=== PATIENT | male | born 1965 | race African-American/Black ===

== ENCOUNTER 2017-06-01 21:18 | Inpatient (IN) ==
[2017-06-01] MEDS ORDERED: NS 1,000 ML ONE (22:20)
[2017-06-01] MEDS ORDERED: NS 1,000 ML IV ONE (22:28)
[2017-06-01 22:32] LABS: MANUAL DIFF NEEDED? NO
[2017-06-01 22:34] LABS: BASO% 0.4 % (0.0-0.8); HEMATOCRIT 29.2 % (42.0-52.0); HEMOGLOBIN 9.8 g/dL (14.0-18.0); IMM GRAN# 0.05 X1000 (0.0-0.04); IMM GRAN% 0.5 % (0.0-0.5); LYMPH# 3.27 X1000 (1.2-3.4); LYMPH% 31.3 % (20.5-51.1); MCH 28.8 PG (27-31); MCHC 33.6 g/dL (33-37); MCV 85.9 FL (81-99); MONO# 0.79 X1000 (0.11-0.59); MONO% 7.6 % (1.7-9.3); MPV 9.6 FL (7.4-10.4); NEUT% 59.2 % (42.2-75.2); PLT 298 X1000 (130-400)
[2017-06-01 22:45] LABS: AGAP 16; ALBUMIN 3.8 g/dL (3.5-5.0); ALKALINE PHOSPHATASE 41 U/L (32-122); AMYLASE 58 U/L (20-200); BUN 18 mg/dL (8-22); CALCIUM 8.1 mg/dL (8.8-10.2); CHLORIDE 100 mmol/L (98-107); COSMO 286; GOT 18 U/L (10-34); GPT 15 U/L (10-44); LIPASE 39 U/L (13-60); POTASSIUM 3.2 mmol/L (3.5-5.1); SODIUM 138 mmol/L (136-145); TCO2 22 mmol/L (25-35); TOTAL BILIRUBIN 0.34 mg/dL (0.20-1.00); TOTAL PROTEIN 5.9 g/dL (6.3-8.3)
[2017-06-01 23:01] LABS: INR 0.98; PROTIME 10.3 Seconds (9.2-11.7)
--- NOTE | 2017-06-01 23:32 | PROVIDER DOCUMENTATION ---
This chart was entered by Tejal Oropeza Scribe, acting as scribe for Rom Zapata MD. HPI-Abdominal Pain/GI Problem - General Chief Complaint: GI Bleed Stated Complaint: DIZZY/STOMACH ISSUES Time Seen by Provider: 06/01/17 22:32 Source: patient Allergies/Adverse Reactions: Patient Allergies Allergy/AdvReac Type Severity Reaction Status Date / Time hydrocodone Allergy NAUSEA Verified 06/01/17 22:42 Home Medications: Home Medication List Medication Instructions Recorded Confirmed Last Taken Type Amlodipine Besylate 10 mg PO DAILY 11/10/12 06/01/17 06/01/17 08:00 History Aspirin 81 mg PO DAILY 11/10/12 06/01/17 06/01/17 08:00 History Glyburide/Metformin HCl 500 mg PO BID 11/10/12 06/01/17 06/01/17 08:00 History [Glyburide-Metformin 2.5-500 mg] Simvastatin 20 mg PO DAILY 11/10/12 06/01/17 06/01/17 08:00 History Dutasteride/Tamsulosin HCl [Radha 0.4 each PO DAILY 06/20/14 06/01/17 06/01/17 08:00 History 0.5-0.4 mg Capsule] Sildenafil Citrate [Viagra] 100 mg PO PRN PRN 06/20/14 06/01/17 09/20/14 History Tadalafil [Cialis] 5 mg PO DAILY 06/01/17 06/01/17 06/01/17 08:00 History - History of Present Illness-ABD Nature of Presenting Problems: 52 Y/O M presents to ED with GI Bleed.Pt states yesterday he began having black tarry stool. Pt states that he hasn't been Vomiting blood.Hx of bladder cancer in remission. Pt states that he he does have HTN and diabetes. States he drank a couple glasses of anna's today. Severity in ED: reports: moderate Onset/Duration: reports: 24 hours ago Timing: reports: still present Activities at Onset: reports: none Associated Symptoms: reports: diarrhea, genitourinary problems. denies: back/ neck pain, chest pain, constipation, EENT symptoms, fatigue Dark Stools Present?: reports: black, tarry Rectal Bleeding: reports: bloody diarrhea Review of Systems - Adult - REVIEW OF SYSTEMS - ADULT Constitutional: denies: chills, fever Eyes: reports: no symptoms reported Ears, Nose, Mouth & Throat: reports: no symptoms reported Cardiovascular: denies: chest pain Respiratory: denies: cough, shortness of breath Gastrointestinal: reports: diarrhea, rectal bleeding. denies: nausea Genitourinary: reports: no symptoms reported Musculoskeletal: reports: no symptoms reported Integumentary: reports: no symptoms reported Neurological: reports: no symptoms reported Psychiatric: reports: no symptoms reported Endocrine: reports: no symptoms reported Hematologic/Lymphatic: reports: no symptoms reported Allergic/Immunologic: reports: no symptoms reported All Other Systems: Reviewed and Negative Past History - Adult - PAST MEDICAL HISTORY-ADULT Review of Records: reports: Old Records Reviewed, Nursing Assessment Review, Medications Reviewed, Social history reviewed & non-contributory. Physical Exam-General - CONSTITUTIONAL General Appearance: alert, no apparent distress, lethargic - EYES Eyes: PERRL/EOMI, pink conjunctivae - HEAD, EARS, NOSE, MOUTH & THROAT HENMT: moist mucous membranes, normal ENT inspection, TMs normal - NECK Neck: full range of motion, supple, normal inspection - RESPIRATORY Respiratory: lungs clear, normal breath sounds - CARDIOVASCULAR Cardiovascular: regular rate, rhythm - GASTROINTESTINAL (ABDOMEN) Abdominal Exam: non tender, soft - LYMPHATIC Lymphatic: no adenopathy - MUSCULOSKELETAL Back Exam: normal inspection Extremity: normal range of motion - SKIN Integumentary: normal color, normal turgor - NEUROLOGIC Neurologic: grossly normal - PSYCHIATRIC Psych/Mental Status: oriented x 3, depressed affect Progress - PLAN OF CARE/RESULTS Progress/Plan/Lab Results: Vital Signs - 8 hr 06/01/17 21:32 Temperature 98.3 F Pulse Rate 97 H Respiratory Rate 15 Blood Pressure 97/53 O2 Sat by Pulse Oximetry 100 Orders Category Date Time Status Saline Loc DIRECTED Care 06/01/17 21:34 Active NPO Diet 06/01/17 21:34 Active AMYLASE [CHEM] Stat Lab 06/01/17 21:55 Received CBC WITH ELECTRONIC DIFF [HEME] Stat Lab 06/01/17 21:55 Results COMPREHENSIVE METABOLIC PANEL [CHEM] Stat Lab 06/01/17 21:55 Received LIPASE [CHEM] Stat Lab 06/01/17 21:55 Received TYPE & SCREEN [BBK] Stat Lab 06/01/17 21:55 Received URINALYSIS W/POSS RFLX CULT-1 [URINALYSIS] Stat Lab 06/01/17 21:34 Uncollected 0.9% Sodium Chloride Inj [Ns] 1,000 ml Med 06/01/17 22:20 Discontinued .ROUTE As Directed 0.9% Sodium Chloride Inj [Ns] 1,000 ml Med 06/01/17 22:28 Active IV 999 mls/hr Result Diagrams: 06/01/17 21:55 06/01/17 21:55 Departure - Departure Date of Disposition Decision: 06/01/17 Time of Disposition Decision: 23:28 DIAGNOSIS: Diabetes Gastrointestinal bleeding Qualifiers: GI bleed type/associated pathology: unspecified gastrointestinal hemorrhage type Qualified Code(s): K92.2 - Gastrointestinal hemorrhage, unspecified Disposition: ADMITTED INPATIENT 09 Certified Medical Emergency: Emergent Condition: Fair Referrals and Follow-Ups: Jaron Michaels [Primary Care Provider] - - Critical Care Note This patient required my direct & personal management of CC.: No This chart was documented by the indicated scribe, (Tejal Oropeza Scribe) and accurately reflects the services I performed and decisions made by me, Rom Zapata MD, as attested by the provider's signature.
[2017-06-02] MEDS ORDERED: POTASSIUM CHLORIDE 20 MEQ/SWI 20 MEQ/100 ML IVPB IV SCH (01:00)
[2017-06-02 01:37] LABS: BILIRUBIN URINE NEGATIVE (NEGATIVE); BLOOD URINE NEGATIVE (NEGATIVE); COLOR YELLOW; GLUCOSE URINE 200 mg/dL (NEGATIVE); LEUKOCYTES URINE NEGATIVE (NEGATIVE); NITRITE URINE NEGATIVE (NEGATIVE); PH URINE 5.5; PROTEIN URINE 30 mg/dL (NEGATIVE); SP GRAVITY URINE 1.021; TURBIDITY URINE CLEAR (CLEAR); UROBILINOGEN URINE NORMAL (NORMAL)
[2017-06-02 01:38] LABS: URINE MICRO REVIEW NEEDED? YES
[2017-06-02] MEDS ORDERED: NS 1,000 ML ONE (01:42)
[2017-06-02] MEDS ORDERED: NS 1,000 ML IV ONE (02:08)
[2017-06-02 02:11] LABS: UR EPITHELIAL CELLS <10 /HPF (<10); URINE BACTERIA NEGATIVE /HPF; URINE CULTURE NEEDED? NO; URINE RBC <10 /HPF (<10); URINE WBC <10 /HPF (<10)
[2017-06-02 02:12] LABS: URINE CASTS NONE SEEN; URINE CRYSTALS NONE SEEN; URINE SMALL ROUND CELLS NONE SEEN; URINE SOURCE CLEAN CATCH
[2017-06-02] MEDS ORDERED: NS 1,000 ML IV SCH (03:09)
[2017-06-02 03:40] LABS: HEMATOCRIT 26.5 % (42.0-52.0); HEMOGLOBIN 8.7 g/dL (14.0-18.0)
[2017-06-02 03:52] LABS: RETIC% 1.76 % (0.8-2.1); RETIC-HE 33.3 PG (28.2-36.6)
[2017-06-02 03:53] LABS: MAGNESIUM 1.8 mg/dL (1.5-2.7)
[2017-06-02] MEDS ORDERED: POTASSIUM CHLORIDE 20 MEQ/SWI 20 MEQ/100 ML IVPB IV ONE (04:20)
[2017-06-02] MEDS: PROTONIX IV SCH ×2 (05:00→18:54)
[2017-06-02] MEDS: HUMALOG SUBQ SCH ×4 (05:38→20:08)
[2017-06-02] MEDS: M.V.I.-12 10 ML, FOLIC ACID 1 MG, MAGNESIUM SULFATE 1 GM, THIAMINE 100 MG in NS 1,000 ML IV SCH (09:11)
[2017-06-02] MEDS: FLOMAX PO SCH (09:20)
[2017-06-02] MEDS: NORVASC PO SCH (09:20)
[2017-06-02] MEDS: ZOCOR PO SCH (09:20)
[2017-06-02] MEDS: AVODART PO SCH (09:20)
[2017-06-02 10:11] LABS: MANUAL DIFF NEEDED? NO
[2017-06-02 10:22] LABS: BASO% 0.1 % (0.0-0.8); EOS# 0.03 X1000 (0.0-0.7); EOS% 0.4 % (0.0-10.0); HEMATOCRIT 23.7 % (42.0-52.0); HEMOGLOBIN 7.7 g/dL (14.0-18.0); IMM GRAN# 0.02 X1000 (0.0-0.04); IMM GRAN% 0.3 % (0.0-0.5); LYMPH# 1.65 X1000 (1.2-3.4); LYMPH% 24.6 % (20.5-51.1); MCH 28.4 PG (27-31); MCHC 32.5 g/dL (33-37); MCV 87.5 FL (81-99); MONO# 0.51 X1000 (0.11-0.59); MONO% 7.6 % (1.7-9.3); MPV 9.8 FL (7.4-10.4); PLT 200 X1000 (130-400); RBC 2.71 XMIL (4.7-6.1)
[2017-06-02] MEDS: CARAFATE LIQUID PO SCH ×3 (11:38→23:26)
[2017-06-02] MEDS: ATIVAN IV PRN (11:38)
[2017-06-02 12:31] LABS: MANUAL DIFF NEEDED? NO
[2017-06-02 12:41] LABS: BASO% 0.2 % (0.0-0.8); EOS# 0.03 X1000 (0.0-0.7); EOS% 0.5 % (0.0-10.0); HEMATOCRIT 23.9 % (42.0-52.0); HEMOGLOBIN 7.7 g/dL (14.0-18.0); IMM GRAN# 0.02 X1000 (0.0-0.04); IMM GRAN% 0.3 % (0.0-0.5); LYMPH# 1.49 X1000 (1.2-3.4); LYMPH% 23.8 % (20.5-51.1); MCH 28.2 PG (27-31); MCHC 32.2 g/dL (33-37); MCV 87.5 FL (81-99); MONO# 0.37 X1000 (0.11-0.59); MONO% 5.9 % (1.7-9.3); MPV 9.3 FL (7.4-10.4); NEUT% 69.3 % (42.2-75.2); PLT 192 X1000 (130-400); RBC 2.73 XMIL (4.7-6.1)
--- NOTE | 2017-06-02 14:39 | CONSULTATION ---
DATE OF CONSULTATION: 06/02/2017 GASTROENTEROLOGY CONSULTATION: REFERRING PHYSICIAN: Dr. Noe. PRIMARY DOCTOR: Dr. Maxx Meza. REASON FOR CONSULTATION: Melena. HISTORY OF PRESENT ILLNESS: Mr. Nuñez is a 52-year-old male who was admitted yesterday around 10 p.m. for melena of acute onset. The patient ate roast pork yesterday and started having abdominal cramping followed by dark tarry stools. He had 4 episodes at home. He has a history of bladder cancer, is in remission. He is being treated by Dr. Shaikh. He also has a history of hypertension and diabetes. He is smoker for 30 years, smokes 1 pack a day. He also likes spicy foods. Has been drinking for a while. He drinks about 2 glasses of anna every day, but had taken more alcohol during this holiday weekend which could have contributed to his symptoms. He has been on aspirin 81 mg every day but denies any other NSAIDs. Since being in the hospital he has not had any bowel movements. He denies any nausea or vomiting. His hemoglobin and hematocrit has dropped so he is getting 2 units of blood transfusion. PAST MEDICAL HISTORY: Diabetes, hypertension, hyperlipidemia, bladder cancer in remission. MEDICATIONS AT HOME: 1. Amlodipine. 2. Aspirin. 3. Glyburide/metformin. 4. Simvastatin. 5. Dutasteride/tamsulosin. 6. Sildenafil. 7. Tadalafil. MEDICATIONS AT HOSPITAL: reviewed in EMR. PAST ALLERGIES: Hydrocodone. PAST SURGICAL HISTORY: Inguinal hernia repair. FAMILY HISTORY: Denies any history of colon cancer or stomach cancer. FAMILY AND SOCIAL HISTORY: He is a smoker 1 pack a day for more than 30 years. Drinks daily 2 glasses of anna per day. Denies a history of drug abuse. He works in [employer]. His is present at the bedside, she works for [employer]. REVIEW OF SYSTEMS: Denies any fevers, rigors, chills, chest pain, shortness of breath, dyspnea. Denies any genitourinary complaints. Denies any history of vomiting blood or nausea. Does complain of melena which is now getting better. Denies any major abdominal pain. Did complain of feeling dizzy at home but now is getting better. PHYSICAL EXAMINATION: Vital signs: Temperature 98.6, pulse rate of 85, respiratory rate of 15, blood pressure of 121/60, saturating 100% on room air. Weight of 210 pounds, BMI of 27 kg. General Appearance: Moderately nourished, lying in bed, in no acute distress. HEENT: No icterus. Pupils equal, react to light. Neck: Supple. Chest: Reveals scattered infiltrate. Rhythm regular. No murmur. Abdomen: Soft, nontender, nondistended. Bowel sounds. No rebound or guarding. Extremities: No cyanosis, clubbing, edema. Neurologic: Alert, awake, oriented. LABS: Hemoglobin and hematocrit is 7.7 and 23.7, white count of 6.7, platelet count of 200,000, MCV of 87.5, INR 0.98. Sodium 130 potassium 3.2, chloride 100, bicarb 20, anion gap 16, BUN of 18, creatinine of 1.2, glucose of 244, calcium is 8.1, phosphorus 2.1, magnesium 1.8. Iron of 2062, ferritin of 125, total bilirubin is 0.34. AST 18, ALT 15, alkaline phosphatase 41, total protein 5.9, albumin 3.8, amylase 58, lipase of 39. Urinalysis showing positive protein, positive glucose, positive ketones. IMAGING: He had imaging of CT scan of the pelvis done on 06/12/2014, that day he was found to have a mass in the left posterolateral urinary bladder suspicious for transitional cell carcinoma. IMPRESSION: 1. Melena. 2. Diabetes. 3. Hypertension. 4. History of bladder cancer diagnosed in , currently in remission being followed by Dr. Shaikh. 5. Anemia. 6. Chronic smoker. RECOMMENDATION/PLAN: 1. Patient was counseled to quit smoking and alcohol completely. 2. The patient will avoid any NSAIDs. 3. We will keep him on Protonix b.i.d. for now but we will give him ice chips today. 4. We will transfuse him 2 units of blood transfusion. 5. Continue on IV fluids, and will start on Carafate 1 g q.6 hours. We will schedule EGD tomorrow under anesthesia. The risks, benefits, indications, alternatives were discussed with the patient and family at the bedside. And all questions were answered. We will check hemoglobin and hematocrit every 6 hours and type and cross, transfuse hematocrit more than 25%. The patient was also counseled to quit spicy foods for now. The above plan discussed with the patient and the family. cc: MD Maxx Grimaldo MD Cesar Garcia-Rodriguez, MD MTDD
[2017-06-02] MEDS: NS 1,000 ML IV SCH ×2 (14:43→18:53)
--- NOTE | 2017-06-02 16:13 | HISTORY AND PHYSICAL ---
REASON FOR ADMISSION: Melanotic stools today. HISTORY OF PRESENT ILLNESS: Mr. Manuel Nuñez is 52-year-old man with a past medical history of type 2 diabetes, hypertension, and bladder cancer status post bladder resection , and hyperlipidemia. He reports that he woke up this morning slightly weak, but went to the bathroom and had a large melanotic bowel movement. Since then, he has had 3 more large ones, but no overt bright red blood. This bothered him so much he decided to come to the hospital. He takes an aspirin a day for cardiovascular disease primary prevention. He denies any use of over-the- counter NSAIDs. The patient denies any nausea, vomiting, or abdominal pains. Denies any bleeding from any other orifice. He denies any palpitations or any cardiorespiratory complaints. Denies any recent changes in his home medications. No use of iron tablets or Pepto- Bismol. REVIEW OF SYSTEMS: A 12-system review was done. Positive findings per HPI. ALLERGIES: Hydrocodone. HOME MEDICATIONS: Cialis 5 mg daily, simvastatin 20 mg daily, 100 mg p.r.n., glyburide/metformin 5/500 b.i.d., dutasteride/tamsulosin 1 daily, aspirin 81 mg daily, Norvasc 10 mg daily. FAMILY HISTORY: Notable for diabetes, hypertension, but no GI history. No heart disease. SOCIAL HISTORY: . Smokes 1 pack a day. Drinks about a glass of anna every day. No illicit drug use. PAST SURGICAL HISTORY: Inguinal hernia repair and cystectomy. PAST MEDICAL HISTORY: See above. LABORATORY WORK: White count 10,000, hemoglobin and hematocrit 9 and 29, platelets 298,000. Patient's last hematocrit was 49, so a 10 point drop. Normal differential. Potassium 3.2, glucose 244, BUN 18, creatinine 1.2. Amylase and lipase normal. PT and PTT normal. PHYSICAL EXAMINATION: GENERAL: Middle-aged man, who is not in acute distress. He is alert and oriented to person, place, and time. VITAL SIGNS: His blood pressure on arrival was 97/53, now it is in the 120/70 range. Heart rate is 97, respirations is 15, temperature is 98.3, 100% on room air. HEENT: Head normocephalic, atraumatic. Eyes PERRL, EOMI. Clear and nonicteric. ENT exam is grossly normal. NECK: Supple. No JVD or carotid bruit. No thyromegaly. CHEST: Clear to auscultation. Good air entry in both lung johansen. CARDIOVASCULAR: First and second heart sounds heard. No gallops, murmurs, rubs. Rhythm is regular. ABDOMEN: Full, soft, nontender. No mass or organomegaly. Bowel sounds are normal. RECTAL: Deferred at this time. EXTREMITIES: Neurovascularly intact. No edema, clubbing, or cyanosis. NEUROLOGICAL: Grossly intact. No focal deficits. SKIN: Intact. No breakdown, lesions, or erythema. MUSCULOSKELETAL: Exam is grossly normal. ASSESSMENT: 1. Upper gastrointestinal bleed, probably query alcoholic gastritis versus peptic ulcer disease. Start patient on IV fluid resuscitation, type and screen, and transfuse if hematocrit less than 27. Start patient on IV PPIs. Consult Dr. Matthew HINES on-call for endoscopy tomorrow. Serial hemoglobin and hematocrit as outlined above, and transfuse p.r.n. Withhold aspirin. 2. Type 2 diabetes, uncontrolled. Start patient on sliding scale. Check A1c. Modify treatment accordingly if markedly elevated. 3. Hypertension. Continue antihypertensives. However, withhold antihypertensives if systolic blood pressure less than 140, in light of decreased intravascular volume. 4. Anemia, likely hemorrhagic. Anemia workup has been ordered. If the patient is iron deficient, this may be a little bit more ominous, in which case it would suggest this has been ongoing for a while, and probably he may need more than just an EGD by colonoscopy. Also, he may also require to visit Dr. Shaikh the urologist, to see if there has not been any recurrence of bladder cancer. 5. Hypokalemia, replace. cc: Jaron Flores MD [facility]
--- NOTE | 2017-06-02 16:48 | Diag Imaging Result Doc PS360 ---
ABDOMEN/PELVIS W/O CONTRAST - 06/02/2017 INDICATION: rectal bleeding TECHNIQUE: A CT dose reduction protocol was used. COMPARISON: 06/12/2014 FINDINGS: There is some trace dependent atelectasis or scarring particularly in the right lower lobe similar to prior. No radiodense renal stones. No hydronephrosis or hydroureter. The abdominal organs are normal. There are some scattered diverticula of the colon most notably at the a ascending colon. No bowel obstruction or inflammation. Normal appendix. Urinary bladder is collapsed. Urinary bladder wall thickening is indeterminate. Prostate and rectum are normal. There are some normal-sized retroperitoneal and mesenteric lymph nodes. No adenopathy. There are moderate degenerative changes of the spine. No acute or suspicious bony lesion. IMPRESSION: 1. Diverticulosis coli at the descending colon. 2. Collapsed urinary bladder which otherwise appears grossly normal. Electronically signed by Johnny Albarran 06/02/2017 4:46 PM
[2017-06-02] MEDS ORDERED: XYLOCAINE-MPF 2% ONE ×2 (17:05→17:39)
[2017-06-02] MEDS ORDERED: DIPRIVAN 1% ONE (17:05)
[2017-06-02] MEDS ORDERED: VITAMIN K 10 MG in NS 50 ML IV ONE (17:30)
--- NOTE | 2017-06-02 18:02 | OPERATIVE NOTE ---
PROCEDURE DATE: 06/02/2017 REFERRING PHYSICIAN: Emile Gill MD PROCEDURE PERFORMED: Esophagogastroscopy. PREOPERATIVE DIAGNOSES: 1. Melena. 2. Rectal bleeding. 3. Reflux disease. 4. One episode of hematemesis yesterday. 5. Computed tomography scan showing diverticulosis. 6. History of urinary bladder cancer, in remission, diagnosed in May 2014. POSTOPERATIVE DIAGNOSIS: 1. Esophagitis LA grade C distal esophagus gastroesophageal junction. 2. Z-line at 37 cm. 3. Evidence of hiatal hernia 4 cm. 4. Mild gastritis antrum. 5. Normal fundus, cardia, incisura. 6. Duodenitis duodenal bulb. 7. Normal 2nd and 3rd portion of duodenum. 8. No evidence of any active bleeding fresh, or old blood noted in the entire esophagogastroduodenoscopy. ESTIMATED BLOOD LOSS: None. COMPLICATIONS: None. ANESTHESIA: Monitored anesthesia care. SPECIMEN: None. TRANSFUSION: The patient was transfused 1 unit of blood transfusion during the procedure. The patient was very tachycardic since he returned from the CAT scan. So far, he received 2 units of blood transfusions for anemia. DESCRIPTION: After informed the patient was explained the risks, benefits, indications, alternatives of the procedure for EGD. The patient was brought to the OR. He was turned to the left lateral position. A bite block was placed in patient mouth. After adequate monitored anesthesia care, the scope was introduced through the oropharynx all the way to the third portion of the esophagus. Esophagus was normal in the proximal 1/3. The middle and distal esophagus showed evidence of erythema. The distal esophagus and GE junction showed evidence of reflux esophagitis, LA grade 3. Z-line was at 38 cm. There was evidence of hiatal hernia about 3-4 cm, sliding type. There was no evidence of any varices or ulceration noted in the entire esophagus. The stomach showed evidence of some bile which was suctioned out. There was evidence of some erythema and friability in the body and antrum suggesting erosive gastritis. Retroflexion revealed normal fundus, cardia, incisura. There were no note of any gastric varices. The duodenal bulb showed evidence of erythema, erosions, and erosive duodenitis. Second and third portion appeared normal. There was no evidence of fresh or old blood noted in the entire EGD. The air was aspirated. The scope was withdrawn. The patient tolerated the procedure and is currently being monitored in the OR in stable condition. RECOMMENDATIONS: 1. The patient will be kept in the ICU. He is being transferred to ICU bed 5. 2. We will check CBC every 4 hours, type and cross, transfuse to keep hematocrit more than 27%. 3. We will schedule patient for flexible sigmoidoscopy/colonoscopy tomorrow. 4. We will keep him on clear liquid diet today and we will start on GoLYTELY later today. 5. We will give him a dose of vitamin K. The patient was again counseled to avoid alcohol and smoking as an outpatient. 6. We will keep him on Protonix and Carafate for now. Discussed the above with patient's and family and all questions were answered. 7. Further recommendations to follow pending the hospital course. cc: MD Emile Grimaldo MD MTDD
[2017-06-02] MEDS ORDERED: GOLYTELY PO ONE (18:30)
[2017-06-02] MEDS: SODIUM CHLORIDE 0.9% INJ PRN (18:54)
[2017-06-02 21:10] LABS: MANUAL DIFF NEEDED? NO
[2017-06-02 21:17] LABS: BASO% 0.2 % (0.0-0.8); EOS# 0.03 X1000 (0.0-0.7); EOS% 0.2 % (0.0-10.0); HEMATOCRIT 24.7 % (42.0-52.0); HEMOGLOBIN 7.9 g/dL (14.0-18.0); IMM GRAN# 0.03 X1000 (0.0-0.04); IMM GRAN% 0.2 % (0.0-0.5); LYMPH# 2.89 X1000 (1.2-3.4); LYMPH% 23.8 % (20.5-51.1); MCH 27.7 PG (27-31); MCV 86.7 FL (81-99); MONO# 0.68 X1000 (0.11-0.59); MONO% 5.6 % (1.7-9.3); MPV 9.7 FL (7.4-10.4); PLT 203 X1000 (130-400); RBC 2.85 XMIL (4.7-6.1)
[2017-06-02] MEDS: SANDOSTATIN 500 MICROGM in D5W 100 ML IV SCH (22:21)
[2017-06-02 22:22] LABS: HEMATOCRIT 22.2 % (42.0-52.0); HEMOGLOBIN 7.3 g/dL (14.0-18.0)
[2017-06-03] MEDS: HUMALOG SUBQ SCH ×3 (02:33→21:05)
[2017-06-03] MEDS: PROTONIX IV SCH (04:34)
[2017-06-03] MEDS: CARAFATE LIQUID PO SCH ×4 (04:34→21:53)
[2017-06-03] MEDS: SODIUM CHLORIDE 0.9% INJ PRN (04:34)
[2017-06-03] MEDS: NS 1,000 ML IV SCH ×4 (04:34→21:53)
[2017-06-03 04:47] LABS: MANUAL DIFF NEEDED? NO
[2017-06-03 05:05] LABS: BASO% 0.3 % (0.0-0.8); EOS# 0.04 X1000 (0.0-0.7); EOS% 0.5 % (0.0-10.0); HEMATOCRIT 24.6 % (42.0-52.0); IMM GRAN# 0.02 X1000 (0.0-0.04); IMM GRAN% 0.3 % (0.0-0.5); LYMPH% 21.5 % (20.5-51.1); MCHC 32.5 g/dL (33-37); MONO# 0.41 X1000 (0.11-0.59); MONO% 5.5 % (1.7-9.3); MPV 10.1 FL (7.4-10.4); NEUT% 71.9 % (42.2-75.2); PLT 149 X1000 (130-400); RBC 2.86 XMIL (4.7-6.1)
[2017-06-03 05:18] LABS: AGAP 5; BUN 6 mg/dL (8-22); CALCIUM 7.2 mg/dL (8.8-10.2); CHLORIDE 109 mmol/L (98-107); COSMO 277; SODIUM 139 mmol/L (136-145); TCO2 25 mmol/L (25-35)
[2017-06-03] MEDS: SANDOSTATIN 500 MICROGM in D5W 100 ML IV SCH (08:14)
--- NOTE | 2017-06-03 09:03 | PROGRESS NOTE ---
DATE: 06/03/2017 SUBJECTIVE: The patient reports yesterday afternoon he had a big rectal bleeding. That is why he was transferred to the unit. By now, he had denies more episodes of bleeding. Denies any dizziness, headache, nausea, vomiting, or abdominal pain. OBJECTIVE: Vital Signs: Temperature 97.9 degrees, heart rate 79, respiratory rate 14, blood pressure 128/80, O2 saturation 99% on room air. General Examination: This is a 52-year-old, male, lying in bed, in no acute distress. HEENT: Head is normocephalic and atraumatic. Anicteric sclerae and pale conjunctivae. Mucous membranes moist. Neck: Supple. No JVD noted. No carotid bruits. No lymphadenopathy. No thyromegaly. Cardiovascular Examination: S1 and S2 heard. No murmurs, gallops, or rubs. Regular rate and rhythm. Respiratory Examination: Clear bilaterally to auscultation. No work of breathing or using accessory muscles. Abdomen: Soft. A little bit distended but nontender to palpation. No mass or organomegaly noted. Bowel sounds present. Extremities: No clubbing, cyanosis, or edema. Peripheral pulses present in both legs. Neurological Examination: Patient is alert and oriented x3. Able to move 4 extremities. Cranial nerves 2-12 grossly normal. Laboratory Data: White cell count 7.44, hemoglobin 8, hematocrit 24.6, and platelets 149,000. BMP unremarkable except glucose 132. ASSESSMENT/PLAN: 1. Gastrointestinal bleeding. The patient was admitted for suspected upper gastrointestinal bleeding but endoscopy yesterday did not reveal any source of active bleeding. Some duodenitis. Yesterday, the patient had an episode of massive rectal bleeding so he was transferred over here in the intensive care unit. The CT of the abdomen shows diverticulosis. Gastroenterology has evaluated this patient. They are planning to do a flexible sigmoidoscopy to find out the source of bleeding. We will follow gastroenterology recommendations. 2. Diabetes mellitus type 2. Glucose is definitely well controlled. Hemoglobin A1c 6 which means good diabetic control. We will continue with the insulin sliding scale. 3. Hypertension. All antihypertensive medication has been held because of this bleeding. We will continue with the same management. 4. Anemia of blood loss. Patient has received so far 5 units of blood. The last hemoglobin that we checked was 8. At this point, we are planning to keep this patient here today in the intensive care unit. We will keep checking CBC. 5. Hypokalemia. That condition is completely resolved. cc: Rad Lawrence MD
[2017-06-03] MEDS: ZOCOR PO SCH (09:56)
[2017-06-03] MEDS: NORVASC PO SCH (09:56)
[2017-06-03] MEDS: FLOMAX PO SCH (09:56)
[2017-06-03] MEDS: AVODART PO SCH (09:56)
[2017-06-03] MEDS: M.V.I.-12 10 ML, FOLIC ACID 1 MG, MAGNESIUM SULFATE 1 GM, THIAMINE 100 MG in NS 1,000 ML IV SCH (10:06)
[2017-06-03] MEDS ORDERED: ROBINUL ONE ×2 (10:30→16:15)
[2017-06-03] MEDS ORDERED: XYLOCAINE-MPF 2% ONE ×2 (10:30→14:01)
[2017-06-03] MEDS ORDERED: ZOFRAN ONE (10:30)
[2017-06-03] MEDS ORDERED: DIPRIVAN 1% ONE ×4 (10:30→14:01)
[2017-06-03] MEDS ORDERED: FENTANYL ONE ×2 (10:31→14:03)
[2017-06-03] MEDS ORDERED: EPINEPHRINE SYRINGE ONE (11:10)
[2017-06-03] MEDS ORDERED: VITAMIN K 10 MG in NS 50 ML IV ONE (13:00)
[2017-06-03] MEDS ORDERED: QUELICIN (DOSE) ONE (14:01)
[2017-06-03] MEDS ORDERED: EPHEDRINE ONE (14:02)
[2017-06-03] MEDS ORDERED: SODIUM CHLORIDE 0.9% 10 ML ONE ×2 (14:02→14:13)
[2017-06-03] MEDS ORDERED: NORCURON ONE (14:02)
[2017-06-03 14:36] LABS: MANUAL DIFF NEEDED? NO
[2017-06-03] MEDS ORDERED: INVANZ 1 GM/NS 1 GM/50 ML IVPB ONE ×2 (14:39→14:40)
--- NOTE | 2017-06-03 14:58 | CONSULTATION ---
DATE OF CONSULTATION: 06/03/2017 CHIEF COMPLAINT: Persistent GI bleeding, believed to be from a right-sided diverticulum. HISTORY: This is a 52-year-old black man admitted on 06/02/2017 with hematochezia. He woke up the morning of the . He went to the bathroom and had a large melanotic bowel movement. He has had persistent bowel movements at home and so he sought medical attention. He does take an aspirin every day but denies NSAIDs. He denies any peptic ulcer disease. He does admit to drinking alcohol regularly. OTHER MEDICAL PROBLEMS: Diabetes, hypertension, hyperlipidemia, and bladder cancer that has been treated by Dr. Shaikh. PREVIOUS SURGERY: Inguinal hernia repair, and he has had some kind of bladder resection as well. HOME MEDICATIONS: 1. Amlodipine. 2. Aspirin. 3. Glyburide/metformin. 4. Simvastatin. 5. Tamsulosin. 6. Sildenafil. 7. Tadalafil. ALLERGIES: He has an intolerance to hydrocodone. FAMILY HISTORY: Negative. He smokes a pack per day. Does drink anna daily. He is employed. He is . REVIEW OF SYSTEMS: Negative for chest pain, fever, shortness of breath. He does admit to some weakness associated with his blood loss. PHYSICAL EXAMINATION: Vital Signs: He is afebrile. Heart rate is 78, blood pressure 139/92, respiratory rate 14. He is awake and alert and oriented. Lungs: Clear. Heart: Regular rhythm. Abdomen: Soft, nontender. A curvilinear scar is noted on his hypogastrium. He has continued to have bright red blood per rectum. ASSESSMENT: GI bleeding from what I believe to be a right-sided diverticulum based on a colonoscopy this morning by Dr. Alaniz. The right sided diverticula are also seen on CT scan. Because of the persistence of his bleeding and because of the fact that he has required 8 units of blood thus far, it is felt that he should undergo an urgent operation for removal of the right side of his colon. He has persistent bleeding despite an attempt at injection. I discussed this with him and his , the benefits and risks of surgery, and they understand and agree to proceed. We will plan to proceed urgently this afternoon. cc: Rom Vargas MD
[2017-06-03] MEDS ORDERED: NEO-SYNEPHRINE ONE (15:08)
[2017-06-03 15:10] LABS: BASO% 0.4 % (0.0-0.8); EOS# 0.12 X1000 (0.0-0.7); EOS% 1.2 % (0.0-10.0); HEMATOCRIT 34.4 % (42.0-52.0); HEMOGLOBIN 11.7 g/dL (14.0-18.0); IMM GRAN# 0.06 X1000 (0.0-0.04); IMM GRAN% 0.6 % (0.0-0.5); LYMPH# 1.85 X1000 (1.2-3.4); LYMPH% 17.8 % (20.5-51.1); MCH 29.8 PG (27-31); MCV 87.8 FL (81-99); MONO# 0.79 X1000 (0.11-0.59); MONO% 7.6 % (1.7-9.3); NEUT% 72.4 % (42.2-75.2); PLT 100 X1000 (130-400); RBC 3.92 XMIL (4.7-6.1)
[2017-06-03] MEDS ORDERED: AMIDATE ONE ×2 (15:40)
[2017-06-03 15:58] LABS: URINE SOURCE CATH
[2017-06-03 16:03] LABS: BILIRUBIN URINE NEGATIVE (NEGATIVE); BLOOD URINE NEGATIVE (NEGATIVE); CLARITY CLEAR (CLEAR); COLOR YELLOW; GLUCOSE URINE NEGATIVE (NEGATIVE); LEUKOCYTES URINE NEGATIVE (NEGATIVE); NITRITE URINE NEGATIVE (NEGATIVE); PROTEIN URINE NEGATIVE (NEGATIVE); SP GRAVITY URINE 1.025; UROBILINOGEN URINE 0.2 EU/dL (0.2-1.0)
[2017-06-03 16:06] LABS: URINE EPITHELIAL CELLS <10 /HPF (<10); URINE RBC <10 /HPF (<10); URINE WBC <10 /HPF (<10)
[2017-06-03] MEDS ORDERED: NEOSTIGMINE ONE (16:15)
--- NOTE | 2017-06-03 16:58 | OPERATIVE NOTE ---
PROCEDURE DATE: 06/03/2017 PROCEDURE PERFORMED: Right hemicolectomy. SURGEON: Rom Vargas MD. TILE ROOFER: ERIC Chow. PREOPERATIVE DIAGNOSIS: Colonic diverticular bleeding, right colon. POSTOPERATIVE DIAGNOSIS: Colonic diverticular bleeding, right colon. INDICATIONS: A 52-year-old gentleman who presented with active GI bleeding. Evaluation by the rand maker revealed a bleeding diverticulum on the right side of the colon. Because of the persistence of the bleeding and the amount of blood he had received, we decided to proceed with right colon resection. DESCRIPTION OF PROCEDURE: Satisfactory general endotracheal anesthesia was achieved, the abdomen was prepped and draped in a sterile fashion. We made an incision in the epigastrium around the umbilicus to the hypogastrium. We carried our incision through the subcutaneous tissue through the midline fascia, entering the abdominal cavity carefully. A brief exploration revealed some blood in the colon and distal small bowel. No masses were palpated. We then began incising along the white line of Toldt in the right lower abdomen. Continued to dissect from caudad to cephalad to free the right colon from its retroperitoneal position. We the liver and gallbladder from the hepatic flexure. We then scored the peritoneum medially, identified the middle colic vessels and that would be our target on the distal colon. We then cleaned off the ileum and divided it with a WENDY 80 blue cartridge. We then proceeded to clamp off the ileocolic vessels with Lilly clamps and divided it and then suture ligated the stumps with 2-0 silk suture ligatures. We continued from distal to proximal using the LigaSure until we reached the middle colic vessels. We then went up to the colon and divided the mesentery, the greater omentum and then divided the colon there with the WENDY 80 blue cartridge. The attachments to again the hepatic flexure were divided with the LigaSure and we handed off the right colon. We then approximated the end of the colon at the end of the small bowel. We used a 3-0 silk to approximate those and then cut off the corners and introduced the WENDY 80 blue cartridge and did a [id number] stapled anastomosis. We approximated the open ends of the bowel with Flora's and then used a TA-60 blue cartridge to staple off the open end of the bowel. We then inverted the staple line with 3-0 silks in a Lembert fashion. We closed the mesentery with 3-0 silks in a Lembert fashion. We changed gloves at this point. We irrigated out the right gutter. Hemostasis was satisfactory. We asked that an NG tube be placed. We palpated it within the stomach. Again, no masses were palpated in the colon otherwise. We returned the bowel to its normal position. We laid the omentum over the small bowel. We then closed the peritoneum with 2-0 chromic. We closed the fascia with a running #2 Prolene. We irrigated out the subcutaneous tissue. We then closed the skin with gabe. A sterile dressing was applied. We inspected the colon. There were some diverticula noted, some blood in the diverticular orifices, and there were some usual mucosal nodules in the ileum of uncertain character. He was sent to the recovery room in satisfactory condition. cc: Rom Vargas MD
[2017-06-03] MEDS: NEXIUM IV SCH (17:12)
[2017-06-03] MEDS: DILAUDID IV PRN ×2 (19:47→22:20)
[2017-06-03 21:06] LABS: MANUAL DIFF NEEDED? NO
[2017-06-03 21:11] LABS: BASO% 0.1 % (0.0-0.8); HEMATOCRIT 22.9 % (42.0-52.0); HEMOGLOBIN 7.6 g/dL (14.0-18.0); IMM GRAN# 0.02 X1000 (0.0-0.04); IMM GRAN% 0.1 % (0.0-0.5); LYMPH# 1.22 X1000 (1.2-3.4); LYMPH% 9.1 % (20.5-51.1); MCH 29.5 PG (27-31); MCHC 33.2 g/dL (33-37); MCV 88.8 FL (81-99); MONO# 0.96 X1000 (0.11-0.59); MONO% 7.1 % (1.7-9.3); MPV 9.7 FL (7.4-10.4); NEUT% 83.6 % (42.2-75.2); PLT 110 X1000 (130-400); RBC 2.58 XMIL (4.7-6.1)
[2017-06-04] MEDS: ATIVAN IV PRN (01:02)
[2017-06-04] MEDS: HUMALOG SUBQ SCH ×4 (02:11→20:31)
[2017-06-04] MEDS: DILAUDID IV PRN ×5 (02:16→20:32)
[2017-06-04] MEDS: NEXIUM IV SCH ×2 (03:09→15:06)
[2017-06-04] MEDS: CARAFATE LIQUID PO SCH ×5 (03:31→21:02)
[2017-06-04 04:39] LABS: MANUAL DIFF NEEDED? NO
[2017-06-04 05:19] LABS: BASO% 0.1 % (0.0-0.8); EOS# 0.04 X1000 (0.0-0.7); EOS% 0.3 % (0.0-10.0); HEMATOCRIT 29.8 % (42.0-52.0); IMM GRAN# 0.04 X1000 (0.0-0.04); IMM GRAN% 0.3 % (0.0-0.5); LYMPH# 1.21 X1000 (1.2-3.4); MCH 29.8 PG (27-31); MCHC 33.6 g/dL (33-37); MCV 88.7 FL (81-99); MONO# 0.79 X1000 (0.11-0.59); MONO% 5.9 % (1.7-9.3); MPV 9.7 FL (7.4-10.4); NEUT% 84.4 % (42.2-75.2); PLT 118 X1000 (130-400); RBC 3.36 XMIL (4.7-6.1)
[2017-06-04 05:34] LABS: AGAP 9; BUN 5 mg/dL (8-22); CALCIUM 6.8 mg/dL (8.8-10.2); CHLORIDE 114 mmol/L (98-107); COSMO 292; SODIUM 147 mmol/L (136-145); TCO2 24 mmol/L (25-35)
[2017-06-04] MEDS: NS 1,000 ML IV SCH (05:35)
[2017-06-04] MEDS ORDERED: CALCIUM GLUCONATE 2 GM in NS 100 ML IV ONE (05:40)
[2017-06-04] MEDS ORDERED: NS 1,000 ML IV SCH (06:56)
[2017-06-04] MEDS: D5 1/2 NS 1,000 ML IV SCH ×2 (08:17→20:32)
[2017-06-04] MEDS: AVODART PO SCH (08:18)
[2017-06-04] MEDS: FLOMAX PO SCH (08:18)
[2017-06-04] MEDS: PERIDEX MT SCH ×2 (08:20→20:31)
[2017-06-04] MEDS: ZOCOR PO SCH (09:00)
[2017-06-04 09:09] LABS: MANUAL DIFF NEEDED? NO
[2017-06-04 09:12] LABS: BASO% 0.2 % (0.0-0.8); EOS# 0.06 X1000 (0.0-0.7); EOS% 0.5 % (0.0-10.0); HEMATOCRIT 27.6 % (42.0-52.0); HEMOGLOBIN 9.1 g/dL (14.0-18.0); IMM GRAN# 0.04 X1000 (0.0-0.04); IMM GRAN% 0.4 % (0.0-0.5); LYMPH# 1.16 X1000 (1.2-3.4); LYMPH% 10.2 % (20.5-51.1); MCH 29.3 PG (27-31); MCV 88.7 FL (81-99); MONO# 0.72 X1000 (0.11-0.59); MONO% 6.3 % (1.7-9.3); MPV 9.1 FL (7.4-10.4); NEUT% 82.4 % (42.2-75.2); PLT 115 X1000 (130-400); RBC 3.11 XMIL (4.7-6.1)
[2017-06-04] MEDS: ZOFRAN IV PRN ×2 (10:40→20:55)
--- NOTE | 2017-06-04 10:50 | PROGRESS NOTE ---
DATE: 06/04/2017 SUBJECTIVE: The patient reports feeling fine after surgery. He has some mild pain in the abdomen but no more episodes of bleeding per rectum. OBJECTIVE: Vital Signs: Temperature 98.2 degrees, heart rate 94, respiratory 19 , blood pressure 117/82. O2 saturation 100% on room air. General: This is a 52-year-old, -[place] male, lying in bed in no acute distress. HEENT: Head is normocephalic and atraumatic. Anicteric sclerae and pale conjunctivae. Mucous membranes moist. Neck supple. No JVD noted. No carotid bruits. No lymphadenopathy. No thyromegaly. Cardiovascular: S1, S2 heard. No murmurs, gallops, or rubs. Regular rate and rhythm. Respiratory: Clear bilaterally to auscultation. No work of breathing or using accessory muscles. Abdomen is soft, nontender to palpation. Bowel sounds present. No organomegaly. Extremities: No clubbing, cyanosis, or edema. Peripheral pulses present in both legs. Clear bilaterally to auscultation. No work of breathing or using accessory muscles. Abdomen is a little bit distended with midline surgical wound covered by dressing. No signs of peritoneal irritation. Extremities: No clubbing, cyanosis, or edema. Peripheral pulses present in both legs. Neurologic: Patient is alert and oriented x3 and moves 4 extremities. LABORATORY DATA: White cell count 11.4, hemoglobin 9.1, hematocrit 27.6, platelets 115,000. BMP unremarkable. ASSESSMENT AND PLAN: 1. Gastrointestinal bleeding. The patient was admitted for gastrointestinal bleeding. Initially, the upper endoscopy did not reveal anything important. Yesterday , he underwent a colonoscopy but, during the procedure, a diverticulum was found that was bleeding profusely, so gastroenterology consulted immediately general surgery, Dr. Vargas, and finally a right hemicolectomy was needed to stop the bleeding. The patient has received so far 8 units of blood and now hemoglobin is stable at 10.0. At this point, we are going to continue checking this patient closely. We will follow recommendations from gastroenterology and from general surgery. 2. Diabetes mellitus, type 2. We will continue with the same management. He eats on sliding scale insulin. 3. Hypertension. Blood pressure medication has been held because of this bleeding. At this point, the blood pressure is well controlled, so we are not going to restart any medications now. 4. Anemia of blood loss. Now, this condition has stabilized after 8 units of blood. The last hemoglobin reportedly is 10.0. 6. Hypokalemia, resolved. Overall, this patient is doing good after surgery. We plan to keep this patient here in the Intensive Care Unit and, if labs are stable tomorrow, we will plan to transfer him to a regular floor. cc: Rad Lawrence MD MTDD
--- NOTE | 2017-06-04 14:36 | OPERATIVE NOTE ---
PROCEDURE DATE: 06/03/2017 ATTENDING PHYSICIAN: Dr. Emile Gill. TITLE OF PROCEDURE: Ileocolonoscopy with hemostasis. PREOPERATIVE DIAGNOSES: 1. Rectal bleeding. Required 5 units of PRBCs last 24 hours. 2. History of reflux disease. 3. History of diverticulosis per the CT scan. 4. Anemia. POSTOPERATIVE DIAGNOSES: 1. Normal terminal ileum. It did have some old blood which was refluxing back from the cecum. 2. The site of the bleeding was most likely at the ascending colon diverticulum. This was treated with 5 mL of epinephrine. We were able to stop the bleeding. 3. Lots of blood, fresh and old throughout the entire colon was lavaged. 4. Polyps noted in the rectum which were not resected. 5. Internal hemorrhoids. 6. Estimated blood loss is about 5 mL from the intervention. 7. The patient did have blood loss related to ongoing GI bleeding, approximately 400 mL, which was suctioned out. 8. A small loss of secondary GI bleeding was about 400 mL which was suctioned out through the colon of blood. SPECIMEN: None. PROCEDURE: After informed consent, the patient explained the risks, benefits, indications, alternatives of the procedure for colonoscopy. The risks of the procedure, including infection, bleeding, pain, trauma to the surrounding structures, perforation, explained to the patient among others and he acknowledged understanding and agreed to proceed. The patient was brought to the OR. After monitored anesthesia, rectal exam was performed which showed blood on the finger. The colonoscope was introduced through the anus and was traversed all the way to the terminal ileum. The terminal ileum was normal but it had some reflux of old blood which was lavaged. I did not visualize any evidence of any ileitis. Cecum and the entire colon was full of fresh and old blood clots. This was lavaged and we suctioned out approximately 400 mL of blood and clots. Next, after cleaning the area, we were able to locate the bleeding diverticulum in the ascending colon. This is large diverticulum measuring at least 1.5 to 2 cm. We were able to inject about 5 mL of epinephrine in the area which stopped the bleeding. I called the general surgeon, Dr. Chet Anderson in the OR to show him the site of the bleeding. We elected not to put any tattoo in the area to avoid any bleeding in the surrounding area which may occlude our view. The rest of the colon was full of fresh and old blood clots. This was lavaged. We were able to lavage the area. The left colon also had some scattered diverticulosis, but we could not see any ongoing active bleeding. There was evidence of a few polyps in the rectum which were not removed. Retroflexion in the rectum revealed internal hemorrhoids, grade 2. The patient tolerated the procedure and was monitored in the OR in stable condition. We ordered for 2 units of blood transfusion intraoperatively which we will start in the PACU. I discussed the findings with the patient's family in the waiting area and all questions answered. RECOMMENDATIONS: 1. Patient will be on n.p.o. except for ice chips. 2. We will call surgical consult because the patient may need right hemicolectomy. I have spoken to Dr. Chet Anderson and Dr. Rom Vargas. 3. The patient will have serial hemoglobin and hematocrit every 4 hours and type and cross and transfuse to keep hematocrit more than 27%. We will give him another dose of vitamin K. 4. We will keep him in ICU for ongoing bleeding. We will order a bleeding scan today. 5. Further recommendations pending the hospital course. cc: MD Emile Grimaldo MD R. Tyler Harney, MD MTDD
[2017-06-05] MEDS: DILAUDID IV PRN ×4 (01:06→21:03)
[2017-06-05] MEDS: HUMALOG SUBQ SCH ×4 (01:07→20:53)
[2017-06-05] MEDS: CARAFATE LIQUID PO SCH ×5 (03:59→23:31)
[2017-06-05] MEDS: NEXIUM IV SCH ×2 (03:59→15:25)
[2017-06-05] MEDS: SODIUM CHLORIDE 0.9% INJ PRN (03:59)
[2017-06-05 05:29] LABS: MANUAL DIFF NEEDED? NO
[2017-06-05 05:35] LABS: BASO% 0.2 % (0.0-0.8); EOS# 0.06 X1000 (0.0-0.7); EOS% 0.7 % (0.0-10.0); HEMATOCRIT 25.4 % (42.0-52.0); HEMOGLOBIN 8.3 g/dL (14.0-18.0); IMM GRAN# 0.04 X1000 (0.0-0.04); IMM GRAN% 0.4 % (0.0-0.5); LYMPH# 1.33 X1000 (1.2-3.4); MCH 29.3 PG (27-31); MCHC 32.7 g/dL (33-37); MCV 89.8 FL (81-99); MONO# 0.64 X1000 (0.11-0.59); MONO% 7.2 % (1.7-9.3); MPV 9.5 FL (7.4-10.4); NEUT% 76.5 % (42.2-75.2); PLT 145 X1000 (130-400); RBC 2.83 XMIL (4.7-6.1)
[2017-06-05 06:04] LABS: AGAP 7; BUN 2 mg/dL (8-22); CALCIUM 7.8 mg/dL (8.8-10.2); CHLORIDE 107 mmol/L (98-107); COSMO 278; POTASSIUM 3.3 mmol/L (3.5-5.1); SODIUM 141 mmol/L (136-145); TCO2 27 mmol/L (25-35)
[2017-06-05] MEDS ORDERED: NS 1,000 ML ONE (07:29)
[2017-06-05] MEDS: PERIDEX MT SCH ×2 (08:11→20:53)
[2017-06-05] MEDS: FLOMAX PO SCH (08:13)
[2017-06-05] MEDS: AVODART PO SCH (08:13)
[2017-06-05] MEDS: ZOCOR PO SCH (08:13)
[2017-06-05] MEDS ORDERED: KLOR-CON PO ONE (08:14)
[2017-06-05] MEDS: D5 1/2 NS 1,000 ML IV SCH ×2 (09:52→14:13)
--- NOTE | 2017-06-05 11:13 | PROGRESS NOTE ---
DATE: 06/05/2017 SUBJECTIVE: Patient reports feeling nauseated after the clear liquid diet has been started for him. He denies any more episodes of rectal bleeding. No vomiting blood. No blood in the urine. OBJECTIVE: Vital Signs: Temperature 98.3 degrees, heart rate 91, respiratory rate 13, blood pressure 131/69 and O2 saturation 97% on room air. General Examination: This is a 52-year-old male, lying in bed, in no acute distress with NG tube placed. HEENT: Head is normocephalic, atraumatic. Anicteric sclerae and pale conjunctivae. Mucous membranes moist. Neck: Supple. No JVD noted. No carotid bruits. No lymphadenopathy. No thyromegaly. Cardiovascular: S1, S2 heard. No murmurs, gallops, or rubs. Regular rate and rhythm. Respiratory: Clear bilaterally to auscultation. No work of breathing or using accessory muscles. Abdomen: Soft, a little bit distended. Bowel sounds hypoactive. No organomegaly. Extremities: No clubbing, cyanosis, or edema. Peripheral pulses present in both legs. Neurological: Patient alert and oriented x3. Moves 4 extremities. LABORATORY DATA: Hemoglobin is 8.3, hematocrit 25.4. BMP unremarkable except potassium 3.3. ASSESSMENT AND PLAN: 1. Hemorrhagic diverticulosis status post right hemicolectomy. Patient now is stable. As we mentioned in previous notes, it was necessary to do a right hemicolectomy to stop the bleeding the patient was having from the colon. Hemoglobin has dropped a little bit so as per GI indications patient is going to receive [address] Vargas from General Surgery also following this patient. We will continue checking CBC daily. 2. Diabetes mellitus type 2. We will continue with sliding scale insulin. 3. Hypertension. Because of this bleeding we have preferred to stop all old blood pressure medications. But generally speaking blood pressure is controlled. 4. Anemia of blood loss. Hemoglobin is 8.3 so he is going to get 2 units of blood as per GI. 5. Hypokalemia. We are going to supplement for this patient with potassium and we will check BMP tomorrow. 6. Disposition. Patient is going to be transferred to a regular floor today. cc: Rad Lawrence MD
[2017-06-05 11:57] LABS: INR 0.96
[2017-06-05] MEDS ORDERED: NS 250 ML ONE (13:23)
--- NOTE | 2017-06-05 13:56 | PROGRESS NOTE ---
DATE: 06/05/2017 Mr. Nuñez remains in the ICU. He has undergone an urgent colon resection per Dr. Vargas for bleeding. He still has an NG tube and Holloway catheter tube in place. His midline incision is healed. He is awake and hemodynamically satisfactory and the hospitalist plans to transfer him from the ICU to the floor. We will work to remove his NG tube and Holloway catheter tube as he gets bowel activity and more ambulatory. I spoke with his at the bedside. cc: Mary Jane Gandhi MD
[2017-06-05] MEDS: ZOFRAN IV PRN (14:39)
[2017-06-06] MEDS: D5 1/2 NS 1,000 ML IV SCH ×2 (00:31→14:24)
[2017-06-06] MEDS: HUMALOG SUBQ SCH ×4 (01:42→20:59)
[2017-06-06] MEDS: CARAFATE LIQUID PO SCH ×4 (05:12→22:52)
[2017-06-06] MEDS: NEXIUM IV SCH ×2 (05:12→15:38)
[2017-06-06 06:22] LABS: MANUAL DIFF NEEDED? NO
[2017-06-06 06:27] LABS: BASO% 0.2 % (0.0-0.8); EOS# 0.09 X1000 (0.0-0.7); EOS% 1.6 % (0.0-10.0); HEMATOCRIT 22.6 % (42.0-52.0); HEMOGLOBIN 7.3 g/dL (14.0-18.0); LYMPH# 0.65 X1000 (1.2-3.4); LYMPH% 11.7 % (20.5-51.1); MCHC 32.3 g/dL (33-37); MCV 89.7 FL (81-99); MONO# 0.53 X1000 (0.11-0.59); MONO% 9.5 % (1.7-9.3); MPV 9.6 FL (7.4-10.4); PLT 173 X1000 (130-400); RBC 2.52 XMIL (4.7-6.1)
[2017-06-06 06:44] LABS: AGAP 11; BUN 3 mg/dL (8-22); CALCIUM 7.9 mg/dL (8.8-10.2); CHLORIDE 103 mmol/L (98-107); COSMO 281; POTASSIUM 3.4 mmol/L (3.5-5.1); SODIUM 141 mmol/L (136-145); TCO2 27 mmol/L (25-35)
--- NOTE | 2017-06-06 09:44 | PROGRESS NOTE ---
DATE: 06/06/2017 Mr. Nuñez is now postop day 3 from a colon resection per Dr. Vargas because of GI bleeding. His hematocrit has slowly dropped over the last 3 days. It was 22 this morning and he is receiving a unit of blood per nurse practitioner. His heart rate is 90, blood pressure 136/68, O2 saturation 98%. He is afebrile, on no antibiotics. His white blood cell count is normal. Hematocrit was 22.6%. BUN and creatinine are 3 and 0.7. Serum glucoses are adequate. His midline incision is dressed. He states that he has had some flatus. PLAN: He is receiving a unit of packed red blood cells now. He has no clinical evidence of ongoing GI bleed. I removed his NG tube. We will remove his Holloway catheter tube this morning. He is on Flomax. I discontinued his intermittent compression hose. He is not on Lovenox because of his GI bleed but he is moving around well in the room and as we know that his hematocrit is stable, we could start Lovenox. He is on telemetry. cc: Mary Jane Gandhi MD
[2017-06-06] MEDS: ZOCOR PO SCH (09:45)
[2017-06-06] MEDS: FLOMAX PO SCH (09:45)
[2017-06-06] MEDS: AVODART PO SCH (09:46)
[2017-06-06] MEDS: PERIDEX MT SCH ×2 (09:51→20:59)
--- NOTE | 2017-06-06 11:12 | PROGRESS NOTE ---
DATE: 06/06/2017 SUBJECTIVE: Patient reports mild abdominal distention every time she tries to get some liquids. Denies any constant abdominal pain, fever, chills or any episodes of vomiting blood or having blood in the stools. OBJECTIVE: Vital Signs: Temperature 98.9 degrees, heart rate 90, respiratory 14, blood pressure 136/60. O2 saturation 98% on room air. General: This is a 52-year-old male, lying in bed, in no acute distress. HEENT: Head is normocephalic, atraumatic. Anicteric sclerae and pale conjunctivae. Mucous membranes moist. Neck: Supple. No JVD noted. No carotid bruits. No lymphadenopathy. No thyromegaly. Cardiovascular: S1, S2 heard. No murmurs, gallops, or rubs. Regular rate and rhythm. Respiratory: Clear bilaterally to auscultation. No work of breathing or using accessory muscles. Abdomen: Soft, a little bit distended with a midline surgical wound covered by dressing. No organomegaly. Bowel sounds hypoactive. Extremities: No clubbing, cyanosis, or edema. Peripheral pulses present in both legs. Neurological: Patient alert and oriented x3. Moves 4 extremities. Cranial nerves 2-12 grossly normal. LABORATORY DATA: Hemoglobin 7.3, hematocrit 22.6. BMP shows potassium 3.4. ASSESSMENT AND PLAN: 1. Hemorrhagic diverticulosis status post right hemicolectomy. Patient reports feeling fine. He is stable. No more signs of GI bleeding. General surgery following this patient after the right hemicolectomy. Hemoglobin has dropped to 7.3 so 1 unit of blood is going to be given to this patient. We are going to check a CBC tomorrow and see if this patient's hemoglobin is stable or not. 2. Diabetes mellitus type 2. We will continue with sliding scale insulin. 3. Hypertension. Because of this episode of bleeding, we have decided to hold all antihypertensive medications. At this point, we will continue checking vitals every 6 hours. 4. Anemia blood loss. We are going to transfuse 1 unit of blood. 5. Hypokalemia almost resolved. We will check BMP tomorrow. 6. Disposition: Patient will be sent home when cleared by General Surgery. cc: Rad Lawrence MD
[2017-06-06] MEDS: DILAUDID IV PRN ×2 (11:38→22:42)
[2017-06-06 12:52] LABS: MANUAL DIFF NEEDED? NO
[2017-06-06 13:32] LABS: BASO% 0.2 % (0.0-0.8); EOS# 0.08 X1000 (0.0-0.7); EOS% 1.2 % (0.0-10.0); HEMATOCRIT 26.1 % (42.0-52.0); HEMOGLOBIN 8.5 g/dL (14.0-18.0); IMM GRAN# 0.02 X1000 (0.0-0.04); IMM GRAN% 0.3 % (0.0-0.5); LYMPH# 0.91 X1000 (1.2-3.4); LYMPH% 13.8 % (20.5-51.1); MCH 28.6 PG (27-31); MCHC 32.6 g/dL (33-37); MCV 87.9 FL (81-99); MONO# 0.57 X1000 (0.11-0.59); MONO% 8.6 % (1.7-9.3); MPV 9.1 FL (7.4-10.4); NEUT% 75.9 % (42.2-75.2); PLT 180 X1000 (130-400); RBC 2.97 XMIL (4.7-6.1)
[2017-06-06] MEDS: SODIUM CHLORIDE 0.9% INJ PRN (15:38)
--- NOTE | 2017-06-06 16:57 | PROGRESS NOTE ---
DATE: 06/06/2017 SUBJECTIVE: The patient is feeling fine. He had surgery, had some abdominal discomfort. No further bleeding from rectum. OBJECTIVE: Vitals: Temperature 98 degrees, heart rate 90, respirations 18, blood pressure 117/82, O2 saturation 100%. General: This is a 52-year-old man in no acute distress. HEENT: No scleral icterus. Conjunctival pallor present. Neck: Supple. Trachea is midline. Heart: Normal first and second heart sounds. Lungs: Clear. Abdomen: Hyperactive bowel sounds are present and normal. Extremities: No cyanosis, clubbing, or edema. Neurological: Alert and oriented. LABORATORY DATA: White count of 11, hematocrit 27.6. IMPRESSION AND PLAN: 1. Gastrointestinal bleed, status post upper and lower endoscopy. 2. Status post right hemicolectomy for diverticular bleed. 3. Diabetes mellitus. 4. Hypertension. 5. Anemia, secondary to blood loss. Overall doing well. No signs of bleeding. Continue gastrointestinal prophylaxis. cc: Kavita Vásquez MD
--- NOTE | 2017-06-06 16:57 | PROGRESS NOTE ---
DATE: 06/06/2017 SUBJECTIVE: Complains of some abdominal cramps and he is taking liquids, but bearable. No nausea or vomiting. No signs of any bleeding. OBJECTIVE: Vital signs: Temperature 98 degrees, heart rate 90, respirations 14, blood pressure 132/62, O2 saturation 98% on room air. General: He is sitting up in no distress. HEENT: No scleral icterus. Conjunctival pallor present. Neck: Supple. Trachea midline. Heart: Normal. Lungs: Normal. Abdomen: Mild distention. in place. Extremities: No cyanosis, clubbing. LABORATORY DATA: Hemoglobin and hematocrit remain stable. Potassium is slightly better than yesterday to 3.4. IMPRESSION AND PLAN: 1. Status post right hemicolectomy secondary to diverticular bleed, stable. Tolerating clear liquids. 2. Diabetes type 2 on sliding scale. 3. Hypertension. 4. Anemia, secondary to gastrointestinal blood loss. 5. Hypokalemia, is almost normal. 6. Disposition. I think once he can tolerate liquids and soft diet, probably tomorrow, he should be able to go home, but it is per Dr. Vargas who will see him tomorrow. -5 cc: Kavita Vásquez MD
--- NOTE | 2017-06-06 16:58 | PROGRESS NOTE ---
DATE: 06/05/2017 SUBJECTIVE: The patient feels fine. Minimal soreness in the abdomen. OBJECTIVE: Vital signs: Are noted and stable, with no fever. O2 saturation 97%. HEENT: No scleral icterus. Conjunctival paler present. Heart: Normal first and second heart sounds. Lungs: Clear. Abdomen: Dressings in place. Bowel sounds present. Slightly hyperactive. Extremities: No cyanosis, clubbing. LABORATORY: Hemoglobin and hematocrit remain stable. Potassium is slightly low at 3.3. IMPRESSION AND PLAN: 1. Status post right hemicolectomy for diverticular bleed. Doing better, no signs of active bleeding. 2. Diabetes mellitus. She is on sliding scale. 3. Hypertension. His blood pressure is normal. 4. Anemia, secondary to blood loss. 5. Hyperkalemia being corrected. 6. Disposition. Patient is going to regular floor. -4 cc: Kavita Vásquez MD
[2017-06-07] MEDS: HUMALOG SUBQ SCH ×4 (02:45→20:31)
[2017-06-07] MEDS: CARAFATE LIQUID PO SCH ×5 (03:56→22:59)
[2017-06-07] MEDS: NEXIUM IV SCH ×2 (03:56→16:51)
[2017-06-07] MEDS ORDERED: NORCO-10 PO PRN (08:28)
[2017-06-07 10:01] LABS: MANUAL DIFF NEEDED? NO
[2017-06-07] MEDS: PERIDEX MT SCH ×2 (10:08→20:31)
[2017-06-07] MEDS: FLOMAX PO SCH (10:09)
[2017-06-07] MEDS: ZOCOR PO SCH (10:09)
[2017-06-07] MEDS: AVODART PO SCH (10:09)
[2017-06-07 10:13] LABS: BASO% 0.2 % (0.0-0.8); EOS% 1.9 % (0.0-10.0); HEMATOCRIT 25.2 % (42.0-52.0); HEMOGLOBIN 8.1 g/dL (14.0-18.0); IMM GRAN# 0.02 X1000 (0.0-0.04); IMM GRAN% 0.4 % (0.0-0.5); LYMPH# 0.76 X1000 (1.2-3.4); LYMPH% 14.5 % (20.5-51.1); MCH 28.3 PG (27-31); MCHC 32.1 g/dL (33-37); MCV 88.1 FL (81-99); MONO# 0.44 X1000 (0.11-0.59); MONO% 8.4 % (1.7-9.3); MPV 9.5 FL (7.4-10.4); NEUT% 74.6 % (42.2-75.2); PLT 209 X1000 (130-400); RBC 2.86 XMIL (4.7-6.1)
[2017-06-07] MEDS ORDERED: NS 500 ML ONE (11:07)
[2017-06-07] MEDS: D5 1/2 NS 1,000 ML IV SCH (11:11)
[2017-06-07 11:24] LABS: AGAP 13; BUN 5 mg/dL (8-22); CALCIUM 8.1 mg/dL (8.8-10.2); CHLORIDE 101 mmol/L (98-107); POTASSIUM 3.4 mmol/L (3.5-5.1); SODIUM 139 mmol/L (136-145); TCO2 25 mmol/L (25-35)
[2017-06-07 11:50] LABS: COSMO 280
--- NOTE | 2017-06-07 11:57 | PROGRESS NOTE ---
DATE: 06/07/2017 SUBJECTIVE: Patient reports feeling fine. Reports 1 episode of bloody stools today morning. No nausea or vomiting. OBJECTIVE: Vital Signs: Temperature 98.6 degrees, heart rate 81, respiratory rate 16, blood pressure 146/62, O2 saturation 100% on room air. General Examination: This a 52-year-old, male, lying in bed, in no acute distress. HEENT: Head is normocephalic and atraumatic. Anicteric sclerae and pale conjunctivae. Mucous membranes moist. Neck: Supple. No JVD noted. No carotid bruits. No lymphadenopathy. No thyromegaly. Cardiovascular Examination: S1 and S2 heard. No murmurs, gallops, or rubs. Regular rate and rhythm. Respiratory Examination: Clear bilaterally to auscultation. No work of breathing or using accessory muscles. Abdomen: Soft, nontender to palpation. There is a little bit of distention of the abdomen with midline surgical wound covered by dressing. Extremities: No clubbing, cyanosis, or edema. Peripheral pulses present in both legs. Neurological Examination: Patient is alert and oriented x3. Moves 4 extremities. Cranial nerves 2-12 are grossly normal. Laboratory Data: Hemoglobin 9.23, hemoglobin 8.1, hematocrit 25.2, platelets 209,000. No BMP today. ASSESSMENT AND PLAN: 1. Hemorrhagic diverticulosis, status post right hemicolectomy. The patient is doing fine. The patient initially was admitted to the hospital because of gastrointestinal bleeding. A colonoscopy did show actually profuse bleeding so we needed to call general surgery stat. Dr. Vargas has performed a right hemicolectomy. So far, patient has received 10 units of blood. The patient was transferred to a regular floor. Postoperative ileus has resolved and now he is feeling fine on a clear liquid diet. Dr. Vargas from general surgery is following. We will definitely let this patient go when okay with general surgery. 2. Diabetes mellitus type 2. We will continue with sliding scale insulin. Glucose is well controlled. 3. Hypertension. We have held all antihypertensive medications. By now, the blood pressure is ranging between 120 and 140. We will continue with the same management. 4. Anemia of blood loss. The patient was transfused one unit of blood yesterday and the hemoglobin is 8.1 today. 5. Hypokalemia, resolved. 6. Disposition. We will send this patient home when is cleared by general surgery. cc: Rad Lawrence MD
--- NOTE | 2017-06-07 13:50 | PROGRESS NOTE ---
DATE: 06/07/2017 ATTENDING PHYSICIAN: Dr. Noe. PRIMARY CARE DOCTOR: Dr. Meza. SUBJECTIVE: The patient is resting in bed. He had 1 formed bowel movement today which was soft and dark red in color. He denies any nausea or vomiting. He has been started on a liquid diet today. He denies any fevers, rigors, chills. PHYSICAL EXAMINATION: Vital Signs: Temperature 98.6, pulse rate of 81, respiratory rate 16, blood pressure 146/60, saturating 100% room air. General Appearance: Moderately built, moderately nourished, lying in bed, in no acute distress. HEENT: Pale conjunctivae. No icterus. Neck: Supple. Abdomen: Midline incision with visible staple. Abdomen is slightly protuberant. Bowel sounds are present. No guarding. Extremities: No cyanosis, clubbing. Neurologic: He is alert, awake, oriented x3. LAB: Hemoglobin and hematocrit are 8.1 and 25.2, white count of 5.2, platelet count 209,000. Sodium 141, potassium 3.4, chloride 103, bicarb 27, anion gap 11, BUN of 3, creatinine 0.7, glucose of 161, calcium is 7.9. IMPRESSION AND PLAN: 1. Right-sided diverticular bleeding, status post right hemicolectomy on [address] Vargas. Currently, he has no signs of active bleeding, although he had 1 stool which had dark red blood. His Hematocrit is stable but low. We will start him on iron C once daily. 2. Diabetes. He is currently on a sliding scale. 3. Anemia secondary to blood loss. Will start iron replacement. 4. Hypertension. Blood pressure is being monitored by the primary care team. 5. Hypokalemia, being corrected by the primary team. 6. Alcoholism: continue abstinence. Patient was counseled in that regard. 7. The patient will follow with us in the clinic after discharge to evaluate his colon for screening purposes. The above plan discussed with the patient and all questions were answered. cc: MD Dr. Sam Grimaldo Dr. [facility]
[2017-06-07] MEDS: TYLENOL PO PRN (16:51)
[2017-06-07 18:45] LABS: HEMATOCRIT 27.5 % (42.0-52.0); HEMOGLOBIN 9.1 g/dL (14.0-18.0)
[2017-06-07] MEDS ORDERED: CATHFLO IV ONE (20:50)
[2017-06-07] MEDS ORDERED: STERILE WATER INJ. INJ ONE (20:50)
[2017-06-08] MEDS: SODIUM CHLORIDE 0.9% INJ PRN (04:20)
[2017-06-08] MEDS: CARAFATE LIQUID PO SCH ×4 (04:20→22:36)
[2017-06-08] MEDS: NEXIUM IV SCH (04:21)
[2017-06-08] MEDS: HUMALOG SUBQ SCH ×4 (04:49→23:20)
[2017-06-08 05:35] LABS: MANUAL DIFF NEEDED? NO
[2017-06-08 05:47] LABS: BASO% 0.2 % (0.0-0.8); EOS# 0.11 X1000 (0.0-0.7); EOS% 2.6 % (0.0-10.0); HEMATOCRIT 24.4 % (42.0-52.0); IMM GRAN# 0.02 X1000 (0.0-0.04); IMM GRAN% 0.5 % (0.0-0.5); LYMPH# 0.77 X1000 (1.2-3.4); LYMPH% 17.9 % (20.5-51.1); MCH 28.9 PG (27-31); MCHC 32.8 g/dL (33-37); MCV 88.1 FL (81-99); MONO# 0.51 X1000 (0.11-0.59); MONO% 11.9 % (1.7-9.3); MPV 9.2 FL (7.4-10.4); NEUT% 66.9 % (42.2-75.2); PLT 200 X1000 (130-400); RBC 2.77 XMIL (4.7-6.1)
[2017-06-08 06:17] LABS: AGAP 10; BUN 5 mg/dL (8-22); CALCIUM 8.3 mg/dL (8.8-10.2); CHLORIDE 105 mmol/L (98-107); COSMO 281; POTASSIUM 3.5 mmol/L (3.5-5.1); SODIUM 142 mmol/L (136-145); TCO2 27 mmol/L (25-35)
[2017-06-08] MEDS: ICAR-C PO SCH (08:35)
[2017-06-08] MEDS: AVODART PO SCH (08:35)
[2017-06-08] MEDS: PERIDEX MT SCH ×2 (08:35→22:36)
[2017-06-08] MEDS: FLOMAX PO SCH (08:36)
[2017-06-08] MEDS: ZOCOR PO SCH (08:36)
[2017-06-08] MEDS: CENTRUM SILVER PO SCH (08:36)
[2017-06-08] MEDS: D5 1/2 NS 1,000 ML IV SCH (08:44)
[2017-06-08] MEDS ORDERED: NS 500 ML ONE (11:40)
--- NOTE | 2017-06-08 16:16 | PROGRESS NOTE ---
DATE: 06/08/2017 SUBJECTIVE: Today Mr. Nuñez referred to be doing fine. Denies any rectal bleed, any dizziness, or any chest pain. OBJECTIVE: Vital signs: Blood pressure is 145/67, pulse 67, respirations 18, temperature is 99.9 degrees. General: Mr. Nuñez is a 52-year-old male. He is in bed, not seemingly distressed. HEENT: Mucosa is pink and moist. Anicteric. Acyanotic. Neck: Supple. Chest: Clear. Cardiovascular: Regular rate and rhythm. Abdomen: Soft. There is a fresh surgical wound which looks clean. It is affronted with surgical clips. There is no active oozing. Extremities: No pedal edema. 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 LABORATORY DATA: WBC is 4.30, hemoglobin is 8.0, platelet count of 200,000. Chemistry is reviewed and completely normal. ASSESSMENT: 1. Diverticular bleed status post right hemicolectomy on 06/03/[address] Vargas. Patient has been started on a diabetic diet today. We are going to continue close observation. 2. Diabetes mellitus. We will continue with sliding scale. 3. Anemia secondary to gastrointestinal bleed. The patient has had a total of 13 PRBC transfusion and 4 FFP transfusion. Today the hemoglobin and hematocrit is 8 and he is getting another unit of blood. We are going to discontinue the order for a blood transfusion and observe the patient. If patient continues to bleed we will contact surgery again to re- evaluate. Clinically he seems to be doing fine. I think part of this could just be dilutional. Of note, patient is completely asymptomatic and he seems to be doing fine, so will keep close observation. cc: MD DEJON Steel
[2017-06-08] MEDS: TYLENOL PO PRN (22:36)
[2017-06-09] MEDS: D5 1/2 NS 1,000 ML IV SCH (01:08)
[2017-06-09] MEDS: HUMALOG SUBQ SCH ×2 (04:48→13:55)
[2017-06-09] MEDS: CARAFATE LIQUID PO SCH ×2 (05:21→09:44)
[2017-06-09] MEDS: PRILOSEC PO SCH ×2 (05:21→06:16)
[2017-06-09 06:18] LABS: MANUAL DIFF NEEDED? NO; RBC 3.35 XMIL (4.7-6.1)
[2017-06-09 06:35] LABS: AGAP 7; BUN 6 mg/dL (8-22); CALCIUM 8.5 mg/dL (8.8-10.2); CHLORIDE 104 mmol/L (98-107); COSMO 276; POTASSIUM 3.6 mmol/L (3.5-5.1); SODIUM 139 mmol/L (136-145); TCO2 28 mmol/L (25-35)
[2017-06-09 08:23] LABS: BASO% 0.4 % (0.0-0.8); EOS# 0.33 X1000 (0.0-0.7); EOS% 6.6 % (0.0-10.0); HEMATOCRIT 29.2 % (42.0-52.0); HEMOGLOBIN 9.5 g/dL (14.0-18.0); IMM GRAN# 0.02 X1000 (0.0-0.04); IMM GRAN% 0.4 % (0.0-0.5); LYMPH# 1.24 X1000 (1.2-3.4); LYMPH% 24.8 % (20.5-51.1); MCH 28.4 PG (27-31); MCHC 32.5 g/dL (33-37); MCV 87.2 FL (81-99); MONO# 0.72 X1000 (0.11-0.59); MONO% 14.4 % (1.7-9.3); MPV 10.1 FL (7.4-10.4); NEUT% 53.4 % (42.2-75.2); PLT 237 X1000 (130-400)
[2017-06-09] MEDS: CENTRUM SILVER PO SCH (09:44)
[2017-06-09] MEDS: ICAR-C PO SCH (09:44)
[2017-06-09] MEDS: ZOCOR PO SCH (09:44)
[2017-06-09] MEDS: FLOMAX PO SCH (09:44)
[2017-06-09] MEDS: PERIDEX MT SCH (09:44)
[2017-06-09] MEDS: AVODART PO SCH (09:44)
[2017-06-09 11:52] VITALS: BP 153/69
[2017-06-09] MEDS: TYLENOL PO PRN (13:44)
--- NOTE | 2017-06-09 15:25 | PROGRESS NOTE ---
DATE: 06/09/2017 SUBJECTIVE: Patient is getting ready to be discharged. He denies any nausea, vomiting or vomiting of blood. He had a soft bowel movement today. His hematocrit is stable. In total he required 14 units of blood transfused and 2 units of FFP during the hospital stay for severe GI bleeding and he is status post right hemicolectomy by Dr. Vargas. OBJECTIVE: Vital signs: Temp 98.2, pulse rate 61, respiratory rate 18, blood pressure 150/69, saturating 100% on room air. Body weight of 217 pounds. General Appearance: Moderately nourished, standing in his room in no acute distress. HEENT: Pale , no icterus. Abdomen: Midline scar noted with gabe. Extremities: No cyanosis, clubbing , and edema. Neurologic: He is alert, awake, oriented. LABS: Hemoglobin and hematocrit is 9.9 and 29.2, white count 5.1, platelet count of 237,000, MCV of 87.2. Sodium 139, potassium 3.6, chloride 104, bicarbonate 20, anion gap 7, BUN 6, creatinine 0.8, glucose of 111, calcium is 8.5. IMPRESSION AND PLAN: 1. Diverticular bleed status post right hemicolectomy on 06/03/[address] Vargas. Patient has been tolerating diet well. He is going home today. I told him to avoid corn , nuts, and seeds in the diet and increase fiber intake. The patient also counseled to quit smoking and alcohol. 2. Anemia. Continue Iron-C b.i.d. for 3 months. 3. The patient had polyps in the colon which we could not resect at the time of his GI bleeding so I told him to call our office to schedule an appointment in a few weeks. We will plan to do a colonoscopy in the next 3-6 months to resect the polyps in the colon. 4. The above plan of care was discussed with the patient and family at bedside. cc: MD Jaret Steel MD Robert C. Walker, MD Malcolm R. Hendricks, MD MTDD
--- NOTE | 2017-06-10 10:58 | DISCHARGE SUMMARY ---
ADMISSION DATE: 06/01/2017 DISCHARGE DATE: 06/09/2017 CONSULTATIONS: 1. Dr. Jaret Schroeder with Gastroenterology. 2. Dr. Rom Vargas with General Surgery. PERTINENT PROCEDURES: 1. Abdomen and pelvis CT showed diverticulosis coli at the descending colon, collapsed urinary bladder but otherwise appears to be grossly normal. 2. EGD and colonoscopy that was performed by Dr. Schroeder. 3. Right hemicolectomy performed by Dr. Rom Vargas secondary to colonic diverticular bleed in the right colon. DISCHARGE DIAGNOSES: 1. Diverticular bleed status post right hemicolectomy on 06/03/[address] Vargas. He has been started back slowly on a diet, advanced all the way to a diabetic diet. He has tolerated that well. 2. Diabetes mellitus. Continue with home medications. 3. Anemia secondary to gastrointestinal bleed. The patient has had a total of 13 PRBCs and 4 FFP transfusions throughout his hospital stay. His hemoglobin and hematocrit are now stable. There are no active signs of bleeding. Hemodynamically stable. The patient is being discharged home. HOSPITAL COURSE: Mr. Nuñez is a 52-year-old gentleman with a past medical history of type 2 diabetes, hypertension, bladder cancer status post bladder resection, and hyperlipidemia. He reported that he woke up on the morning of his admission slightly weak, went to the bathroom, had a large melenic bowel movement. Since that time he had 3 more large ones but no overt bright red blood. He came to the ED. He takes aspirin every day for cardiovascular disease for primary prevention. He denied any [id number] use of NSAIDs, as well as denied any nausea, vomiting, or abdominal pain or bleeding from any other orifice. No use of iron tablets or Pepto-Bismol. On admission patient's white count was 10. His hemoglobin and hematocrit were 9 and 29, with a platelet count of 298,000. The patient was admitted for an upper GI bleed with a GI consult. He was started on IV PPIs. He underwent an upper and lower scope with Dr. Schroeder, where he was found to have colonic diverticular bleeding in the right colon. General surgery was consulted. Dr. Rom Vargas did a right hemicolectomy on the patient. As of note, the patient has had a total of 13 units of PRBC as well as 4 FFPs. Patient is now hemodynamically stable. No clinical evidence of ongoing GI bleed. For a short time he did have an NG tube that has since been removed. He was started on a clear liquid diet and advanced to a diabetic diet which he has tolerated well. He is appropriate for discharge home today with his . VITAL SIGNS: Temperature is 98.2 degrees, heart rate 61, respirations 18, blood pressure 153/69, O2 is 100% on room air. DISCHARGE DIET: Diabetic. DISCHARGE MEDICATIONS: As per Dr. Guzman. 1. Norvasc 10 mg p.o. daily. 2. Aspirin 81 mg p.o. daily. 3. Radha 0.5/0.4 mg capsule 1 each p.o. daily. 4. Glimepiride metformin 2.5/500 mg 500 mg p.o. b.i.d. 5. Viagra 100 mg p.o. p.r.n. 6. Simvastatin 20 mg p.o. daily. 7. Cialis 5 mg p.o. daily. FOLLOW-UP: The patient is being discharged home with his . He is to resume a diabetic diet. He will follow up with Dr. Rom Vargas on 06/14/2017, as well as Dr. Schroeder as indicated and his primary care physician, Jaron Michaels in 7-10 days. Patient can return to the ED for any worsening of symptoms. DISCHARGE TIME: 30 minutes. Dictated by BRENDA Benjamin for Randall Guzman MD cc: MD Jaron Steel
--- NOTE | 2017-06-13 10:26 | PROGRESS NOTE ---
DATE: 06/08/2017 SUBJECTIVE: The patient is feeling fine. Getting restless and wants to go home. OBJECTIVE: Vital Signs: Blood pressure 140/60, pulse 67, respirations 18, temperature 99 degrees. General: This is a 52-year-old gentleman in no acute distress. He is actually dressed up and going out for a smoke. HEENT: No scleral icterus. Conjunctival pallor present. Neck: Supple. Trachea in the midline. Abdomen: Wounds are clean. No cyanosis or clubbing. Laboratory Data: Hemoglobin is 8. Chemistries normal. IMPRESSION: 1. Gastrointestinal blood loss from massive diverticular bleed. 2. Status post right hemicolectomy. Since then, the patient did not have any bleeding other than some old blood in the stool. 3. Diabetes mellitus. 4. Smoking cessation. 5. Gastrointestinal prophylaxis. I think patient's hematocrit is stable. He may not need a transfusion. Dr. Guzman is holding the transfusion and observing. The patient is getting ready to be discharged. We will follow him as an outpatient. cc: Kavita Vásquez MD
== END 2017-06-09 15:10 | disposition home or self-care (01) ==
LOC: ED 21:18 → SUATTDRO 06-02 02:37 → 3N 06-02 02:37 → ICU 06-02 17:17 → 4N 06-05 18:05
PROVIDERS: ATTEND Internal Medicine